=== PATIENT | male | born 1985 | race Caucasian/White ===

== ENCOUNTER 2016-12-21 18:25 | Inpatient (IN) ==
[2016-12-21] MEDS ORDERED: SALINE FLUSH 10ml SYRINGE IVF PRN (18:31)
[2016-12-21] MEDS ORDERED: NS 1,000 ML IV ONE (18:33)
[2016-12-21] MEDS ORDERED: NS 1,000 ML IV SCH (18:34)
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
[2016-12-21] MEDS: NS 1,000 ML IV SCH (22:17)
[2016-12-22] MEDS: NS 1,000 ML IV SCH ×3 (02:21→12:24)
[2016-12-22] MEDS ORDERED: HYDROCODONE/APAP 5mg/325mg TABLET PO PRN (13:11)
[2016-12-22] MEDS ORDERED: ACETAMINOPHEN 325 MG TABLET PO PRN (13:11)
[2016-12-22] MEDS ORDERED: ONDANSETRON 4 MG/2 ML INJECTION IVP PRN (13:12)
[2016-12-22] MEDS ORDERED: ZOLPIDEM 5 MG TABLET PO PRN (13:13)
[2016-12-22] MEDS: 1/2 NS IV SCH ×3 (13:13→21:46)
[2016-12-22] MEDS: POTASSIUM CHLORIDE IV SCH ×3 (13:13→21:46)
[2016-12-22] MEDS: SODIUM BICARBONATE IV SCH ×3 (13:13→21:46)
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
[2016-12-22] MEDS ORDERED: NEOMYCIN/POLYMYXIN/BACITRACIN OINT PACKET TP PRN (14:56)
--- NOTE | 2016-12-22 17:42 | Progress Note ---
Progress Note: please refer to addendum to H&P for today's information.
[2016-12-22] MEDS: 1/2 NS 1,000 ML IV SCH (21:45)
[2016-12-23] MEDS: 1/2 NS IV SCH (05:52)
[2016-12-23] MEDS: SODIUM BICARBONATE IV SCH (05:52)
[2016-12-23] MEDS: POTASSIUM CHLORIDE IV SCH (05:52)
[2016-12-23] MEDS: 1/2 NS 1,000 ML IV SCH ×3 (05:53→21:45)
--- NOTE | 2016-12-23 12:38 | Progress Note ---
Subjective: Pt doing well and denies any acute complaints other then mild LE swelling. Denies any n/v/d, f/c, cp or sob. Denies any muscle tenderness. Objective Vital signs: Temp Pulse Resp BP Pulse Ox 97.5 F 70 20 125/67 95 12/23/16 07:59 12/23/16 08:00 12/23/16 07:59 12/23/16 07:59 12/23/16 07:59 Rhythm: Normal Sinus Rhythm Weight: 100.7 kg - Constitutional Present: no acute distress - Routine HEENT Exam Head: Present: normocephalic, atraumatic Eye: Present: EOMI - Routine Respiratory Exam Present: CTA bilaterally. Absent: wheezes - Routine Cardiovascular Exam Present: RRR, no murmur - Routine Abdominal Exam Present: soft, non distended, non tender - Routine Extremities Exam Present: no edema. Absent: cyanosis, clubbing - Routine Skin Exam Present: intact, dry Results - Labs CBC & Chem 7: 12/23/16 05:16 12/23/16 05:16 Assessment and Plan (1) Heat exhaustion Current visit: Yes Status: Acute (2) Syncope Current visit: Yes Status: Acute i think this is directly related to dehydration, certainly with the exertion in the heat recently, this makes sense. his ekg appears normal, will monitor on telemetry overnight, check orthostatics in the morning. if these both look reasonable that we can discontinue telemetry monitoring and i think the only barrier for discharge just to make sure that this CPK is low enough. i don't think that an echocardiogram is indicated. 12/21/16 22:14 (3) Rhabdomyolysis Current visit: Yes Status: Acute with his cpk in the tendons of bowel sounds, i think it's prudent to provide aggressive iv fluid hydration, i will order normal saline 250 cc/h, will recheck his cpk in the morning. clinically fortunately he looks okay. we'll monitor on telemetry with his syncopal episode although i think it's very likely related to dehydration status. I think it may require 2 overnights to get his CPK below 5000 to avoid kidney injury so I think full admit is warranted 12/21/16 22:12 (4) Dehydration Current visit: Yes Status: Acute (5) Transaminitis Current visit: Yes Status: Acute (6) Hypokalemia Current visit: Yes Status: Acute Assessment and Plan: Rhabdomyolysis -2/2 to heat exhaustion and exertion -Improving, CPK ~18K -Will cont. IV fluids until <5K -Monitor electrolytes Transaminitis -c/w with rhabdo -Improving Anemia -Check iron panel Ppx -DVT-SCD Sepsis Assessment - Evaluation Sepsis screening result: No Definite Risk - Focused Exam Vital Signs Temp Pulse Resp BP Pulse Ox 12/23/16 08:00 70 12/23/16 07:59 97.5 F 67 20 125/67 95 Respiratory exam: Present: CTA bilaterally. Absent: accessory muscle use Cardiovascular exam: Present: RRR, S1, S2, no murmur Capillary refill: < 2-3 Seconds Hospital Course Summary Disclaimer: The visit summary below is not to be considered part of the above Progress Note. Hospital Course: 12/23/16 12:38 Pt doing well, cont. IV fluids and trending CPK.
[2016-12-24] MEDS: 1/2 NS 1,000 ML IV SCH ×2 (04:33→11:41)
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
== END 2016-12-24 14:10 | disposition home or self-care (01) | DRG 923 ==
LOC: ED 18:25 → MED 21:36
PROVIDERS: ADMIT Pediatrics; ATTEND Pediatrics